=== PATIENT | male | born 1995 | race Caucasian/White ===

== ENCOUNTER 2023-01-03 00:16 | Emergency (ER) | payer MEDICAID ==
[~2023-01-03] VITALS: Ht 177.8 cm; Wt 75.0 kg
[2023-01-03 00:24] VITALS: BP 137/87; PULSE 100; RESP 20; TEMP 98.3; O2SAT 98
== END 2023-01-03 02:29 | disposition left against medical advice (07) ==
LOC: ER 00:16
DX: R10.9 Unspecified abdominal pain (principal); Z53.21 Procedure and treatment not carried out due to patient leaving prior to being seen by health care provider
CPT/HCPCS: 99281

== ENCOUNTER 2023-05-18 08:57 | Emergency (ER) | payer MEDICAID ==
[~2023-05-18] VITALS: Ht 172.7 cm; Wt 72.0 kg
[2023-05-18 09:00] VITALS: O2SAT 96
[2023-05-18] MEDS: KETOROLAC 60MG/2ML VIAL IM ONE (09:36)
[2023-05-18] MEDS: ACETAMINOPHEN 325MG TABLET PO ONE (09:37)
[2023-05-18 09:38] VITALS: TEMP 97.9
[2023-05-18] MEDS: LORAZEPAM 1MG TABLET PO ONE (10:20)
[2023-05-18] MEDS ORDERED: TOPUD MT (11:37)
[2023-05-18] MEDS ORDERED: IBUP-1523 MT (11:37)
[2023-05-18] MEDS ORDERED: LORA-250 MT (11:37)
[2023-05-18 11:56] VITALS: BP 126/82; PULSE 68; RESP 20
== END 2023-05-18 12:00 | disposition home or self-care (01) ==
LOC: ER 08:57
DX: M54.2 Cervicalgia (principal); Z98.890 Other specified postprocedural states
CPT/HCPCS: 72040; 96372; 99283; J1885; Z7610